=== PATIENT | male | born 1950 | race Caucasian/White ===

== ENCOUNTER 2018-02-19 13:43 | Emergency (ER) | END 2018-02-19 16:50 | disposition home or self-care (01) ==

== ENCOUNTER 2018-09-21 20:52 | Observation (INO) | payer MEDICARE, OTHER ==
[~2018-09-21] VITALS: Ht 175.3 cm; Wt 79.5 kg
[~2018-09-21 20:52] MED LIST: ZOLP5TAB PO
[2018-09-21] MEDS ORDERED: KETOROLAC 15 MG INJ IV STA (20:56)
[2018-09-21] MEDS ORDERED: ONDANSETRON 4 MG INJ IV STA (20:56)
[2018-09-21] MEDS ORDERED: SOD CHLORIDE 0.9% 1,000 ML IV STA (20:56)
--- NOTE | 2018-09-21 21:18 | ERD ---
ER Documentation Chief Complaint Chief Complaint RAFAEL RA39,possible sz per EMS,post-ictal,L cheeck abrasion, hx on methadone HPI This is a 68-year-old male brought in by EMS from [facility] [facility] for loss of consciousness and questionable seizure. 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 He states he has a "seizure" history but denies actual antiepileptic medication use. Patient had a witnessed collapse today and struck mostly the left side of his face, during this episode he had difficulty breathing and was foaming at the mouth, but his friend who is at the bedside states he had no tonic-clonic seizure activity. Patient denies any tongue injury, and there was no loss of bowel or bladder c ontrol. EMS state upon their arrival he was awake but a bit confused and they transported him here. Patient has had no recent chest pain, no shortness of breath, no complaints of vomiting or diarrhea. ROS All systems reviewed and are negative except as per history of present illness. 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 History of Surgery: No Anesthesia Reaction: No Hx Neurological Disorder: No Hx Respiratory Disorders: No Hx Cardiac Disorders: No Hx Miscellaneous Medical Probl: Yes (hepc , heroine use ) Hx Alcohol Use: Yes Hx Substance Use: Yes (h/o heroine use ) Hx Tobacco Use: Yes FmHx Family History: No diabetes Physical Exam Vitals Vital Signs Date Temp Pulse Resp B/P (MAP) Pulse Ox O2 O2 Flow FiO2 Time Delivery Rate 09/21/18 98.4 110 18 158/91 100 20:55 (113) Physical Exam GENERAL: Well-developed, well-nourished, appears initially confused, dehydrated, afebrile HEENT: Dry mucous membranes, pink conjunctiva, no cervical spine tenderness or step-off deformities, soft tissue contusion and abrasion to the left face and left orbit, extraocular movements intact without pain NEURO: Alert and oriented 3, pupils equal round reactive to light, patient initially confused but able to answer questions follow commands, no focal deficits CARDIAC: Tachycardic and regular, no murmurs rubs or gallops LUNGS: Clear bilaterally no wheezing crackles or stridor ABDOMEN: Soft nontender, no guarding, no rigidity, no rebound, no psoas sign no obturator sign. SKIN: Warm and dry to touch, no abrasions, contusions, or hematomas, no lacerations, no ecchymosis, no target lesions, and without ulcers EXTREMITIES: No clubbing cyanosis or edema, calves are bilaterally symmetrical, no Homans sign, no popliteal cord sign. Distal pulses equal and bilateral PSYCH: Normal affect without agitation or irritability Results 24 hrs Laboratory Tests Test 09/21/18 21:21 09/21/18 21:22 White Blood Count 2.6 10^3/ul Red Blood Count 3.96 10^6/ul Hemoglobin 13.4 g/dl Hematocrit 40.0 % Mean Corpuscular Volume 101.0 fl Mean Corpuscular Hemoglobin 33.8 pg Mean Corpuscular Hemoglobin Concent 33.5 g/dl Red Cell Distribution Width 14.3 % Platelet Count 37 10^3/UL Mean Platelet Volume 11.4 fl Immature Granulocytes % 0.400 % Neutrophils % % Lymphocytes % % Monocytes % % Eosinophils % % Basophils % % Nucleated Red Blood Cells % 0.0 /100WBC Immature Granulocytes # 0.010 10^3/ul Neutrophils # 10^3/ul Lymphocytes # 10^3/ul Monocytes # 10^3/ul Eosinophils # 10^3/ul Basophils # 10^3/ul Nucleated Red Blood Cells # 10^3/ul Blood Gas Specimen Source Blood arterial Arterial Blood Date Drawn 09/21/2018 9:30:40 PM Arterial Blood pH (Temp corrected) 7.516 Arterial Blood pCO2 (Temp correct) 26.9 mmhg Arterial Blood pO2 (Temp corrected) 87.9 mmHG Arterial Blood HCO3 21.3 mmol/L Arterial Blood Base Excess -0.2 mmol/L Arterial Blood Oxygen Saturation 97.1 mmHG Wade Test ACCEPTAB Arterial Blood Gas Puncture Site Right Radial Arterial Blood Carboxyhemoglobin 3.1 % Arterial Blood Methemoglobin 0.2 % Blood Gas A-a O2 Differential 29.6 mmHg Oxyhemoglobin Percent 93.9 % Blood Gas Temperature 37.0 C Blood Gas Modality ROOM AIR FiO2 21.0 % Blood Gas Notified Whom MG Blood Gas Notified Time 09/21/2018 9:39:15 PM Current Medications Medications Dose Sig/Cody Start Time Status Last (Trade) Ordered Route PRN Stop Time Admin Dose Reason Admin Sodium 1,000 ml @ Q1H STAT 09/21/18 09/21/18 Chloride 1,000 mls/hr IV 20:56 21:35 09/21/18 21:55 Ondansetron 4 mg ONCE STAT 09/21/18 DC 09/21/18 HCl (Zofran IV 20:56 21:35 Inj) 09/21/18 20:57 Ketorolac 15 mg ONCE STAT 09/21/18 DC 09/21/18 Tromethamine IV 20:56 21:35 (Toradol) 09/21/18 20:57 Procedures/MDM IV line was established patient was placed on director of cardiac cath lab rhythm strip revealed a sinus tachycardia at 110 bpm with upright P and T waves. Patient was afebrile EKG performed, read by me revealed a sinus tachycardia at 103 bpm, normal axis, narrow QRS complex, no concerning ST elevations or depressions noted CT scan of the brain was negative for acute bleed mass or shift. Chest X-ray 1V Interpreted by me: Soft Tissue: No acute abnormalities Bones: No acute abnormalities Mediastinum/Cardiac Silhouette/Lungs: No acute abnormalities I administered 1 L normal saline IV, Zofran 4 mg IV, Toradol [address] scan of the maxillofacial bones have been performed results are pending I will follow-up. ABG performed revealed a pH of 7.52, PCO2 27, PaO2 90 revealing mild respiratory alkalosis CBC was unremarkable, liver function tests normal, troponin negative, electrolytes normal I do not suspect seizure or primary cardiac etiology, patient most likely suffered acute opioid overdose versus benzodiazepine withdrawal as he does have a history of drug abuse and I suspect he continues to use drugs on a daily basis. I recommended admission to telemetry for continued medical management observation, and consultations although I deferred these to admitting team. 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
[2018-09-21] MEDS ORDERED: METH10TA2 PO (22:35)
[2018-09-22] VITALS (10 sets, daily range): BP systolic 108–148; BP diastolic 66–79; PULSE 59–89; RESP 16–18; Ht 175.3 cm; Wt 79.5 kg
[2018-09-22] MEDS ORDERED: ONDANSETRON 4 MG INJ IV PRN (02:00)
[2018-09-22] MEDS ORDERED: ACETAMINOPHEN 325 MG TAB PO PRN (02:00)
[2018-09-22] MEDS ORDERED: NACL 0.9% 3 ML SYG IV SCH (02:00)
--- NOTE | 2018-09-22 02:14 | HP ---
Date/Time of Note Date/Time of Note DATE: 09/22/18 TIME: 02:13 Assessment/Plan VTE Prophylaxis SCD applied (from Nsg): Yes Pharmacological prophylaxis: NA/contraindicated Pharm contraindication: thrombocytopenia Lines/Catheters IV Catheter Type (from Nrsg): Saline Lock Assessment/Plan Hospital Course This is a 68-year-old male being admitted to the telemetry floor for observation for: #1 syncope: Neurocardiogenic versus cardiogenic versus seizure disorder versus drug related. CT of the head does not show any acute intracranial abnormality. EKG is nonischemic. Initial troponin was negative. Will check an echocardiogram with bubble study. Will order an MRI of the brain. Carotid Do pplers. Fall precautions, seizure precautions. Check D-dimer as well as PE is also on differential with his abnormal ABG.. Orthostatic vitals. Will monitor the patient on telemetry. Of note urine drug screen is negative. PT OT evaluation. PRN Ativan for seizures. Neuro consult #2 Hyperbilirubinemia: Patient denies any right upper quadrant pain. Will check liver ultrasound. Patient may have a history of possible underlying liver disorder. hepaptitis panel #3 thrombocytopenia: Etiology unknown, appear relatively consistent with previous labs. Appears relatively consistent from previous labs. Possibly secondary to underlying liver disorder, will obtain liver ultrasound. hepatitis panel. #4 leukopenia: Patient is currently afebrile, this was likely secondary to underlying liver disorder versus other. Will check a right upper quadrant ultrasound. Likely will need further workup as an outpatient. #5 history of illicit drug use: Patient has a history of IV drug use in the past. Currently on methadone 40 mg p.o. daily. He is complaining of pain at the current time. Given that I did give him a one-time dose of morphine. Will consider restarting methadone once patient's symptoms are improved. #6 DVT GI prophylaxis: SCDs, no GI prophylaxis indicated Further treatment strategy will be implemented as per the clinical course. Result Diagram: 09/21/18212009/21/182120 Results 24hrs Laboratory Tests Test 09/21/18 21:21 09/21/18 21:22 09/22/18 00:40 White Blood Count 2.6 L Red Blood Count 3.96 L Hemoglobin 13.4 L Hematocrit 40.0 L Mean Corpuscular Volume 101.0 Mean Corpuscular 33.8 H Hemoglobin Mean Corpuscular 33.5 Hemoglobin Concent Red Cell Distribution 14.3 Width Platelet Count 37 #L Mean Platelet Volume 11.4 H Immature Granulocytes % 0.400 Neutrophils % Segmented Neutrophils 50 % (Manual) Lymphocytes % Lymphocytes % (Manual) 32 Reactive Lymphocytes 7 H % (Manual) Monocytes % Monocytes % (Manual) 6 Eosinophils % Eosinophils % (Manual) 2 Basophils % Metamyelocytes % (manual) 2 H Myelocytes % (Manual) 1 H Nucleated Red Blood Cells 0.0 % Immature Granulocytes # 0.010 Neutrophils # Lymphocytes (Manual) 0.8 Lymphocytes # Reactive Lymphocytes # 0.1 H Monocytes # Monocytes # (Manual) 0.1 L Eosinophils # Basophils # Metamyelocytes # 0.0 Myelocytes # 0.0 Nucleated Red Blood Cells # Platelet Estimate SIG DECREASED Sodium Level 136 Potassium Level 3.3 L Chloride Level 101 Carbon Dioxide Level 22 Anion Gap 13 Blood Urea Nitrogen 9 Creatinine 0.64 Est Glomerular Filtrat > 60 Rate mL/min Glucose Level 124 Calcium Level 9.0 Total Bilirubin 1.8 H Direct Bilirubin 0.00 Indirect Bilirubin 1.8 H Aspartate Amino 56 H Transf (AST/SGOT) Alanine 39 Aminotransferase (ALT/SGPT ) Alkaline Phosphatase 133 H Troponin I < 0.012 Total Protein 8.2 H Albumin 3.7 Globulin 4.50 H Albumin/Globulin Ratio 0.82 Lipase 219 Ethyl Alcohol Level < 10.0 H Blood Gas Specimen Source Blood arterial Arterial Blood Date Drawn 09/21/2018 9:30:40 PM Arterial Blood pH 7.516 H (Temp corrected) Arterial Blood pCO2 26.9 L (Temp correct) Arterial Blood pO2 87.9 (Temp corrected) Arterial Blood HCO3 21.3 L Arterial Blood Base Excess -0.2 Arterial Blood 97.1 Oxygen Saturation Wade Test ACCEPTAB Arterial Blood Gas Right Radial Puncture Site Arterial 3.1 H Blood Carboxyhemoglobin Arterial Blood 0.2 Methemoglobin Blood Gas A-a O2 29.6 H Differential Oxyhemoglobin Percent 93.9 Blood Gas Temperature 37.0 Blood Gas Modality ROOM AIR FiO2 21.0 Blood Gas Notified Whom MG Blood Gas Notified Time 09/21/2018 9:39:15 PM Urine Opiates Screen Negative Urine Barbiturates Negative Urine Amphetamines Screen Negative Urine Benzodiazepines Negative Screen Urine Cocaine Screen Negative Urine Cannabinoids Negative HPI/ROS Admit Date/Time Admit Date/Time Hx of Present Illness Chief complaint: Syncopal episode versus seizure The following history was obtained from the ED physician as well as from the patient. Patient however is a very poor historian. This is a 68-year-old male who was brought in by EMS from home versus boarding care facility after patient was witnessed to have loss of consciousness and possible seizure. Patient had a lives with a roommate. Apparently patient was noticed to be standing at the kitchen floor and fell forward and hit his face. He was apparently noticed to have a seizure however there was no shaking present. Patient himself reports that he has a seizure in the past years ago however he is not currently on any antiepileptic medications. Apparently when the patient fell he was noted to have foaming at the mouth but his friend who was with him at the bedside in the ED denied any tonic-clonic seizure activity. There was no tongue biting or loss of bowel or bladder control. When EMS arrived to pick of the patient he did report that he was awake but he did appear confused. Patient himself does not recall what happened except for when he woke up and saw the paramedics. Patient himself only states that he takes methadone daily and a pill for sleeping. He states he goes to [facility] to get his methadone. He states he takes methadone 40 mg p.o. daily Allergies: NKDA Medications: See TYE ALVARADO Const: As per HPI Eyes : No pain discharge or redness or change in visual acuity ENT: No pain, sore throat, congestion, congestion, dysphagia or discharge Respiratory: No shortness of breath, cough, sputum, wheezing, or pleuritic pain Cardiovascular: No chest pain, palpitation, PND, or edema GI : no change in appetite, abdominal pain, nausea, vomiting, diarrhea, constipation, or change in the color his stool Genitourinary: No dysuria, hematuria, flank pain , discharge or CVA tenderness Musculoskeletal: No joint pain, back pain, neck pain, restricted range of motion in neck or joints Skin: As per HPI Neuro: As per HPI Endocrine: No polyuria, polydipsia, temperature intolerance Psych: No hallucination, depression, anxiety or suicidal ideation PMH/Family/Social Past Medical History Remote history of a seizure as a child Medications Current Medications IV Flush (NS 3 ml) 3 ml PER PROTOCOL IV ; Start 09/22/18 at 02:00 Ondansetron HCl (Zofran Inj) 4 mg Q6H PRN IV NAUSEA/VOMITING; Start 09/22/18 at 02:00 Acetaminophen (Tylenol Tab) 650 mg Q6H PRN PO .PAIN 1-3 OR TEMP; Start 09/22/18 at 02:00 Lorazepam (Ativan) 1 mg Q4H PRN IV SEIZURES; Start 09/22/18 at 02:30 Coded Allergies: No Known Allergy (Unverified , 09/21/18) Past Surgical History Past Surgical Hx: no surgical history Family History Significant Family History: no pertinent family hx Social History History of IV drug use in the past currently on methadone Alcohol Use: none Smoking Status: Unknown if ever smoked Drug Use: none Exam/Review of Systems Vital Signs Vitals Vital Signs Date Temp Pulse Resp B/P (MAP) Pulse Ox O2 O2 Flow FiO2 Time Delivery Rate 09/21/18 98.4 70 18 158/91 100 Room Air 21:00 (113) Exam Exam General: Patient is currently lying in bed he is easily arousable he does still report that he does not recall exactly what happened. HEENT: Atraumatic, normocephalic. The pupils are equal, round and reactive. Extraocular motor are intact, left-sided facial contusion from fall Neck: Supple with full range of motion. No rigidity or meningismus Chest: Nontender Lungs: Clear to auscultation bilaterally no crackles rales or wheezing Heart: Normal S1-S2, Regular rhythm and rate. No murmur, S3, or S4 Abdomen: Soft , nontender, nondistended , bowel sounds are present. No guarding no rebound tenderness , No masses or organomegaly. No costovertebral temporal angle mass Extremities: Normal to inspection, no edema no cyanosis Skin: Left-sided facial contusion from fall no overt bleeding at the current time. Neurologic: Alert and oriented x3, speech is normal, cranial nerves II through XII intact, no focal neurological deficits, strength 5-bilateral upper and lower extremities Additional Comments PROCEDURE: CT Maxillofacial without contrast CLINICAL INDICATION: Acute trauma. TECHNIQUE: A CT of the facial bones was performed on a multi-slice CT scanner utilizing high-resolution axial images. Sagittal, coronal, and multiplanar ref ormatted images were made. Additionally, 3-D reformatted images were made. One or more the following dose reduction techniques were utilized: Automated exposure control, adjustment of the mA/ or kV according to patient's size, or use of iterative reconstruction technique. DICOM images are available for review. The CTDIvol is 29.42 mGy and the DLP is 627.85 mGycm. COMPARISON: None. FINDINGS: Osseous structures: Mandible, zygomatic arches, pterygoid plates and anterior maxillary spine are intact. The nasal septum, left and right maxilla and bony orbits are intact. Old bilateral nasal bone fractures. Soft tissues: There is bleeding in the soft tissues of the anterior lateral lef t cheek. No localized hematoma. Bleeding extends into the inferior left eyelid. The left and right globes and retro-orbital soft tissues are intact. IMPRESSION: 1. No acute facial bone fracture. 2. Bleeding in the soft tissues of the left anterior lateral cheek. RPTAT: [facility] Physician Prince Date Time Electronically viewed and signed by Physician Prince on 09/21/2018 22:37 RS/ CC: PATTIE DE LA GARZA MD [id number] PROCEDURE: CT Brain without contrast. CLINICAL INDICATION: 68-year-old male. Acute trauma. TECHNIQUE: A CT of the brain was performed on a multi-slice CT scanner utilizing axial imaging from the skull base through the vertex without IV contrast. Multiplanar reformatted images were made. Images were reviewed on a PACS workstation. One or more the following dose reduction techniques were utilized: Automated exposure control, adjustment of mA/ or kV according to patient's size, or use of iterative reconstruction technique. DICOM images are available for review. The CTDIvol is 38.91 mGy and the DLP is 713.51 mGycm. COMPARISON: None FINDINGS: Cerebral and cerebellar volume loss. No mass effect or midline shift. No acute intra-axial or extra-axial hemorrhage. No subdural collection. Lobo - white mat ter differentiation is maintained. Visualized paranasal sinuses are clear. Mastoid air cells are clear. IMPRESSION: No acute intracranial hemorrhage. RPTAT: [facility] Grace Mendez Physician Date Time Electronically viewed and signed by Grace Mendez Physician on 09/21/2018 22:38 RS/ CC: PATTIE DE LA GARZA MD [id number] PROCEDURE: DX Chest 1 View CLINICAL INDICATION: Acute trauma. TECHNIQUE: AP Portable chest. COMPARISON: None FINDINGS: Normal cardiac and mediastinal configuration. Aortic calcified plaque present. No CHF or hilar enlargement. Lungs are clear. IMPRESSION: No acute disease. RPTAT: [facility] Grace Mendez, Physician Date Time Electronically viewed and signed by Grace Mendez, Physician on 09/21/2018 22:38 RS/ CC: PATTIE DE LA GARZA MD [id number] EKG sinus tachycardia at 103 bpm, normal axis, narrow QRS complex, no concerning ST elevations or depressions noted VLAD CROSS Sep 22, 2018 02:14
[2018-09-22] MEDS ORDERED: LORAZEPAM 2 MG INJ IV PRN (02:30)
[2018-09-22] MEDS ORDERED: POTASSIUM CHLORIDE (SR) 20 MEQ TAB PO ONE (04:00)
[2018-09-22] MEDS ORDERED: morphine 2 MG INJ IV ONE (04:00)
--- NOTE | 2018-09-22 10:05 | CONS ---
Assessment/Plan Assessment/Plan Hospital Course 68 M c/ Hx of polysubstance abuse w/ Hx of provoked seizures in that context...who presents for evaluation following LOC. He denies recent ETOH or illicit drug use in the past year. UDS negative.. The clinical Hx is suspicious for unprovoked seizure.. Head CT is unrevealing. P: Await MRI brain w/ and w/o contrast Add EEG to evaluate for epileptiform activity Ativan iv prn prolonged seizure Consultation Date/Type/Reason Admit Date/Time Type of Consult Neurology Reason for Consultation LOC Requesting Provider: VLAD CROSS Date/Time of Note DATE: 09/22/18 TIME: 10:05 Hx of Present Illness This is a 68-year-old male who was brought in by EMS from home versus boarding care facility after patient was witnessed to have loss of consciousness and possible seizure. Patient had a lives with a roommate. Apparently patient was noticed to be standing at the kitchen floor and fell forward and hit his face. He was apparently noticed to have a seizure however there was no shaking present. Patient himself reports that he has a seizure in the past years ago however he is not currently on any antiepileptic medications. Apparently when the patient fell he was noted to have foaming at the mouth but his friend who was with him at the bedside in the ED denied any tonic-clonic seizure activity. There was no tongue biting or loss of bowel or bladder control. When EMS arrived to pick of the patient he did report that he was awake but he did appear confused. Patient himself does not recall what happened except for when he woke up and saw the paramedics. Patient himself only states that he takes methadone daily and a pill for sleeping. He states he goes to community clinic at the [facility] to get his methadone. He states he takes methadone 40 mg p.o. daily Allergies: NKDA Medications: See OCT 09 PT ROS ow neg Exam/Review of Systems Exam Vitals Vital Signs Date Temp Pulse Resp B/P (MAP) Pulse Ox O2 O2 Flow FiO2 Time Delivery Rate 09/22/18 60 08:12 09/22/18 98.0 16 108/69 98 Room Air 07:20 (82) Intake and Output 09/21/18 09/21/18 09/22/18 1515:00 23:00 07:00 IntakeIntake Total 300 ml BalanceBalance 300 ml Exam PE: Gen Appearance: No Apparent Distress HEENT: R eye hematoma; tongue biting.. Cardiovascular: Regular rate Lungs: Clear bilaterally Abdomen: Soft Extremities: Dry NE: The patient was alert and oriented. Language was normal. Fund of knowledge was normal. Pupils were equal and reactive to light. There was no afferent pupillary defect. Visual rothman were normal. Funduscopic examination was limited. Extra-ocular movements were full. Ptosis was absent. There was no nystagmus. Facial sensation was symmetric. Face was symmetric with normal strength. Hearing was intact. Palate movements were normal. Neck strength was normal. There was normal tongue bulk and speed of movement. Tone was normal. Muscle bulk was normal. I did not see fasciculations. Arms and legs were symmetric. Vibration sensation was symmetric. Temperature and pinprick sensation was symmetric. Rapid alternating movements were normal. There was no dysmetria. There was no intention tremor. Gait was deferred due to bedrest. Arm and leg reflexes were symmetric. Potter's sign was absent. Plantar responses were flexor. Results Result Diagram: 09/22/1860409/22/18604 Results 24hrs Laboratory Tests Test 09/21/18 21:21 09/21/18 21:22 09/22/18 00:40 09/22/18 06:05 White Blood 2.6 L 1.8 #L Count Red Blood Count 3.96 L 3.15 #L Hemoglobin 13.4 L 10.8 L Hematocrit 40.0 L 31.4 #L Mean 101.0 99.7 Corpuscular Volume Mean 33.8 H 34.3 H Corpuscular Hemoglobin Mean 33.5 34.4 Corpuscular Hemoglobin Conc ent Red Cell 14.3 14.0 Distribution Width Platelet Count 37 #L 28 #*L Mean Platelet 11.4 H 12.3 H Volume Immature 0.400 0.000 L Granulocytes % Neutrophils % Segmented 50 62 Neutrophils % (Manual) Lymphocytes % Lymphocytes % 32 27 (Manual) Reactive 7 H Lymphocytes % (Manual) Monocytes % Monocytes % 6 7 (Manual) Eosinophils % Eosinophils % 2 4 (Manual) Basophils % Metamyelocytes 2 H % (manual) Myelocytes % 1 H (Manual) Nucleated Red 0.0 0.0 Blood Cells % Immature 0.010 0.000 Granulocytes # Neutrophils # Lymphocytes 0.8 0.4 L (Manual) Lymphocytes # Reactive 0.1 H Lymphocytes # Monocytes # Monocytes # 0.1 L 0.1 L (Manual) Eosinophils # Basophils # Metamyelocytes 0.0 # Myelocytes # 0.0 Nucleated Red Blood Cells # Platelet SIG DECREASED SIG DECREASED Estimate Sodium Level 136 135 Potassium Level 3.3 L 4.3 Chloride Level 101 106 Carbon Dioxide 22 27 Level Anion Gap 13 2 #L Blood Urea 9 8 Nitrogen Creatinine 0.64 0.62 Est Glomerular > 60 > 60 Filtrat Rate mL/min Glucose Level 124 87 Calcium Level 9.0 8.5 Total Bilirubin 1.8 H 1.9 H Direct 0.00 0.00 Bilirubin Indirect 1.8 H 1.9 H Bilirubin Aspartate Amino 56 H 45 Transf (AST/SGO T) Alanine 39 35 Aminotransferas e (ALT/SGPT) Alkaline 133 H 81 Phosphatase Troponin I < 0.012 0.014 Total Protein 8.2 H 6.3 # Albumin 3.7 2.6 #L Globulin 4.50 H 3.70 H Albumin/Globuli 0.82 0.70 n Ratio Lipase 219 Ethyl Alcohol < 10.0 H Level Blood Gas Blood arterial Specimen Source Arterial Blood 09/21/2018 9:30: Date Drawn 40 PM Arterial Blood 7.516 H pH (Temp corrected ) Arterial Blood 26.9 L pCO2 (Temp correct) Arterial Blood 87.9 pO2 (Temp corrected ) Arterial Blood 21.3 L HCO3 Arterial Blood -0.2 Base Excess Arterial Blood 97.1 Oxygen Saturati on Wade Test ACCEPTAB Arterial Blood Right Radial Gas Puncture Site Arterial 3.1 H Blood Carboxyhe moglobin Arterial Blood 0.2 Methemoglobin Blood Gas A-a 29.6 H O2 Differential Oxyhemoglobin 93.9 Percent Blood Gas 37.0 Temperature Blood Gas ROOM AIR Modality FiO2 21.0 Blood Gas MG Notified Whom Blood Gas 09/21/2018 9:39: Notified Time 15 PM Urine Opiates Negative Screen Urine Negative Barbiturates Urine Negative Amphetamines Screen Urine Negative Benzodiazepines Screen Urine Cocaine Negative Screen Urine Negative Cannabinoids Band 1 Neutrophils % (Manual) Neutrophils # 1.1 L (Manual) Band 0.0 Neutrophils # Giant Platelets 3 H Hemoglobin A1c 4.4 Magnesium Level 1.7 Creatine Kinase 250 H Creatine Kinase 1.2 Index Creatinine 2.99 H Kinase MB (Mass) Thyroid 1.250 Stimulating Hormone (TSH) Test 09/22/18 08:11 D-Dimer 1905.43 H D-Dimer Comment Medications Medication Current Medications IV Flush (NS 3 ml) 3 ml PER PROTOCOL IV ; Start 09/22/18 at 02:00 Ondansetron HCl (Zofran Inj) 4 mg Q6H PRN IV NAUSEA/VOMITING Last administered on 09/22/18at 09:57; Admin Dose 4 MG; Start 09/22/18 at 02:00 Acetaminophen (Tylenol Tab) 650 mg Q6H PRN PO .PAIN 1-3 OR TEMP; Start 09/22/18 at 02:00 Lorazepam (Ativan) 1 mg Q4H PRN IV SEIZURES; Start 09/22/18 at 02:30 Past Medical History reviewed Home Meds Reported Medications Methadone Hcl* (Methadone*) 10 Mg Tab, 40 MG PO DAILY, TAB PER PT GETS RX AT [facility] 09/21/18 Discontinued Scripts Zolpidem Tartrate* (Ambien*) 5 Mg Tablet, 5 MG PO HS PRN for INSOMNIA, #10 TAB Prov:VIV HELTON MD 02/19/18 Medications Current Medications IV Flush (NS 3 ml) 3 ml PER PROTOCOL IV ; Start 09/22/18 at 02:00 Ondansetron HCl (Zofran Inj) 4 mg Q6H PRN IV NAUSEA/VOMITING Last administered on 09/22/18at 09:57; Admin Dose 4 MG; Start 09/22/18 at 02:00 Acetaminophen (Tylenol Tab) 650 mg Q6H PRN PO .PAIN 1-3 OR TEMP; Start 09/22/18 at 02:00 Lorazepam (Ativan) 1 mg Q4H PRN IV SEIZURES; Start 09/22/18 at 02:30 Allergies: Coded Allergies: No Known Allergy (Unverified , 09/21/18) Past Surgical History reviewed Past Surgical Hx: no surgical history Social History reviewed Alcohol Use: none Smoking Status: Unknown if ever smoked Drug Use: none ANDERSON CRUZ NP Sep 22, 2018 10:05 ERNESTO HAMILTON Sep 22, 2018 11:50
[2018-09-22] MEDS: NICOTINE (21 MG/24 HR) PATCH TRANSDERM SCH (16:22)
--- NOTE | 2018-09-22 16:34 | PN ---
Date/Time of Note Date/Time of Note DATE: 09/22/18 TIME: 16:30 Assessment/Plan VTE Prophylaxis Risk score (from Ns)>0 risk: 4 SCD applied (from [facility]): Yes Pharmacological prophylaxis: NA/contraindicated Pharm contraindication: bleeding, thrombocytopenia Lines/Catheters IV Catheter Type (from [facility]): Saline Lock Assessment/Plan Assessment/Plan This is a 68-year-old male being admitted to the telemetry floor for observation for: #1 syncope: - Neurocardiogenic versus cardiogenic versus seizure disorder. - CT of the head does not show any acute intracranial abnormality. - EKG is nonischemic, trop negative x3, no events on tele. - Neurology is concerned about occult seizure. Will get MRI and EEG prior to discharge. 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 Patient is now sober. #3 thrombocytopenia: - Likely from cirrhosis; stable from prior labs. Patient is not actively bleeding. #5 history of illicit drug use: - Patient has a history of IV drug use in the past. Currently on methadone 40 mg p.o. daily. #6 DVT GI prophylaxis: SCDs, no GI prophylaxis indicated Further treatment strategy will be implemented as per the clinical course. Result Diagram: 09/22/18 0605 09/22/18 0605 Subjective 24 Hr Interval Summary Free Text/Dictation No acute overnight events. This morning patient feeling well, no complaints. Up and ambulating. Exam/Review of Systems Exam Vitals Vital Signs Date Temp Pulse Resp B/P (MAP) Pulse Ox O2 O2 Flow FiO2 Time Delivery Rate 09/22/18 63 16:08 09/22/18 97.6 18 113/66 98 Room Air 11:08 (82) Intake and Output 09/21/18 09/21/18 09/22/18 1515:00 23:00 07:00 IntakeIntake Total 300 ml BalanceBalance 300 ml Exam General: Well developed man up and ambulatory in room. HEENT: Atraumatic, normocephalic. The pupils are equal, round and reactive. Extraocular motor are intact, left-sided facial contusion from fall Neck: Supple with full range of motion. No rigidity or meningismus Chest: Nontender Lungs: Clear to auscultation bilaterally no crackles rales or wheezing Heart: Normal S1-S2, Regular rhythm and rate. No murmur, S3, or S4 Abdomen: Soft , nontender, nondistended , bowel sounds are present. No guarding no rebound tenderness , Extremities: Normal to inspection, no edema no cyanosis Skin: Left-sided facial contusion from fall no overt bleeding at the current time. Results Results 24hrs Laboratory Tests Test 09/21/18 21:21 09/21/18 21:22 09/22/18 00:40 09/22/18 06:02 White Blood 2.6 L Count Red Blood Count 3.96 L Hemoglobin 13.4 L Hematocrit 40.0 L Mean Corpuscular 101.0 Volume Mean Corpuscular 33.8 H Hemoglobin Mean Corpuscular 33.5 Hemoglobin Cristina nt Red Cell 14.3 Distribution Width Platelet Count 37 #L Mean Platelet 11.4 H Volume Immature 0.400 Granulocytes % Neutrophils % Segmented 50 Neutrophils % (Manual) Lymphocytes % Lymphocytes % 32 (Manual) Reactive 7 H Lymphocytes % (Manual) Monocytes % Monocytes % 6 (Manual) Eosinophils % Eosinophils % 2 (Manual) Basophils % Metamyelocytes % 2 H (manual) Myelocytes % 1 H (Manual) Nucleated Red 0.0 Blood Cells % Immature 0.010 Granulocytes # Neutrophils # Lymphocytes 0.8 (Manual) Lymphocytes # Reactive 0.1 H Lymphocytes # Monocytes # Monocytes # 0.1 L (Manual) Eosinophils # Basophils # Metamyelocytes # 0.0 Myelocytes # 0.0 Nucleated Red Blood Cells # Platelet SIG DECREASED Estimate Sodium Level 136 Potassium Level 3.3 L Chloride Level 101 Carbon Dioxide 22 Level Anion Gap 13 Blood Urea 9 Nitrogen Creatinine 0.64 Est Glomerular > 60 Filtrat Rate mL/min Glucose Level 124 Calcium Level 9.0 Total Bilirubin 1.8 H Direct Bilirubin 0.00 Indirect 1.8 H Bilirubin Aspartate Amino 56 H Transf (AST/SGOT ) Alanine 39 Aminotransferase (ALT/SGPT) Alkaline 133 H Phosphatase Troponin I < 0.012 Total Protein 8.2 H Albumin 3.7 Globulin 4.50 H Albumin/Globulin 0.82 Ratio Lipase 219 Ethyl Alcohol < 10.0 H Level Blood Gas Blood arterial Specimen Source Arterial Blood 09/21/2018 9:30: Date Drawn 40 PM Arterial Blood 7.516 H pH (Temp corrected) Arterial Blood 26.9 L pCO2 (Temp correct) Arterial Blood 87.9 pO2 (Temp corrected) Arterial Blood 21.3 L HCO3 Arterial Blood -0.2 Base Excess Arterial Blood 97.1 Oxygen Saturatio n Wade Test ACCEPTAB Arterial Blood Right Radial Gas Puncture Site Arterial 3.1 H Blood Carboxyhem oglobin Arterial Blood 0.2 Methemoglobin Blood Gas A-a O2 29.6 H Differential Oxyhemoglobin 93.9 Percent Blood Gas 37.0 Temperature Blood Gas ROOM AIR Modality FiO2 21.0 Blood Gas MG Notified Whom Blood Gas 09/21/2018 9:39: Notified Time 15 PM Urine Opiates Negative Screen Urine Negative Barbiturates Urine Negative Amphetamines Screen Urine Negative Benzodiazepines Screen Urine Cocaine Negative Screen Urine Negative Cannabinoids Hepatitis B NEGATIVE Surface Antigen Hepatitis B POSITIVE H Surface Antibody Hepatitis C REACTIVE H Antibody Test 09/22/18 06:05 09/22/18 08:00 09/22/18 08:11 09/22/18 09:44 White Blood 1.8 #L Count Red Blood Count 3.15 #L Hemoglobin 10.8 L Hematocrit 31.4 #L Mean Corpuscular 99.7 Volume Mean Corpuscular 34.3 H Hemoglobin Mean Corpuscular 34.4 Hemoglobin Cristina nt Red Cell 14.0 Distribution Width Platelet Count 28 #*L Mean Platelet 12.3 H Volume Immature 0.000 L Granulocytes % Neutrophils % Segmented 62 Neutrophils % (Manual) Band Neutrophils 1 % (Manual) Lymphocytes % Lymphocytes % 27 (Manual) Monocytes % Monocytes % 7 (Manual) Eosinophils % Eosinophils % 4 (Manual) Basophils % Nucleated Red 0.0 Blood Cells % Immature 0.000 Granulocytes # Neutrophils # Neutrophils # 1.1 L (Manual) Band Neutrophils 0.0 # Lymphocytes 0.4 L (Manual) Lymphocytes # Monocytes # Monocytes # 0.1 L (Manual) Eosinophils # Basophils # Nucleated Red Blood Cells # Platelet SIG DECREASED Estimate Giant Platelets 3 H Sodium Level 135 Potassium Level 4.3 Chloride Level 106 Carbon Dioxide 27 Level Anion Gap 2 #L Blood Urea 8 Nitrogen Creatinine 0.62 Est Glomerular > 60 Filtrat Rate mL/min Glucose Level 87 Hemoglobin A1c 4.4 Calcium Level 8.5 Magnesium Level 1.7 Total Bilirubin 1.9 H Direct Bilirubin 0.00 Indirect 1.9 H Bilirubin Aspartate Amino 45 Transf (AST/SGOT ) Alanine 35 Aminotransferase (ALT/SGPT) Alkaline 81 Phosphatase Creatine Kinase 250 H 272 H Creatine Kinase 1.2 1.0 Index Creatinine 2.99 H 2.74 H Kinase MB (Mass) Troponin I 0.014 < 0.012 Total Protein 6.3 # Albumin 2.6 #L Globulin 3.70 H Albumin/Globulin 0.70 Ratio Thyroid 1.250 Stimulating Hormone (TSH) Rapid Plasma NONREACTIVE Reagin Prothrombin Time 19.5 H Prothrombin Time 1.5 Ratio INR 1.64 International Normalized Ratio Activated 41.1 H Partial Thrombop last Time D-Dimer 1905.43 H D-Dimer Comment Medications Medication Current Medications IV Flush (NS 3 ml) 3 ml PER PROTOCOL IV ; Start 09/22/18 at 02:00 Ondansetron HCl (Zofran Inj) 4 mg Q6H PRN IV NAUSEA/VOMITING Last administered on 09/22/18at 09:57; Admin Dose 4 MG; Start 09/22/18 at 02:00 Acetaminophen (Tylenol Tab) 650 mg Q6H PRN PO .PAIN 1-3 OR TEMP; Start 09/22/18 at 02:00 Lorazepam (Ativan) 1 mg Q4H PRN IV SEIZURES; Start 09/22/18 at 02:30 Nicotine (Nicoderm 21 Mg/ 24hr) 1 patch DAILY TRANSDERM Last administered on 09/22/18at 16:22; Admin Dose 1 PATCH; Start 09/22/18 at 16:00 ANTONIA PATTON MD Sep 22, 2018 16:34
[2018-09-22] MEDS ORDERED: AL HYDROX/MG HYDROX/SIMETH 30 ML CUP PO PRN (20:30)
--- NOTE | 2018-09-22 21:05 | EEG ---
EEG NOTE Report Details DATE OF TEST: 09/22/18 HISTORY: The patient is a 68-year-old M who presents with altered mental status. This EEG is requested to evaluate for an epileptic disorder. SEDATION: None. CONDITIONS OF RECORDING: This EEG was recorded digitally on the [email or web address] machine, using the International 10-20 System of electrodes plus anterior temporals and Nz. STATES SAMPLED: Wakefulness and drowsiness. FINDINGS: During wakefulness, there is a 10 Hz posterior dominant rhythm, which attenuates normally with eye opening. There is a normal [id number] frequency-amplitude gradient. The remainder of the awake background is notable for admixed theta and delta activity. Photic stimulation does not elicit any definite driving responses or epileptiform discharges. Hyperventilation was not performed. The patient became drowsy but did not pass into sleep. No asymmetries, focal abnormalities or epileptiform discharges were seen. Incidentally, the single-channel radiation monitor did not reveal any obvious cardiac arrhythmia. IMPRESSION: Abnormal electroencephalogram due to: mild diffuse slowing. COMMENT: The slowing of the background indicates mild, diffuse cortical dysfunction of nonspecific etiology. ERNESTO HAMILTON Sep 22, 2018 21:05
[2018-09-23] VITALS: BP 109/64; PULSE 62; PULSE 65; RESP 18
[2018-09-23 04:00] VITALS: BP 112/72; PULSE 63; PULSE 64; RESP 18
[2018-09-23] MEDS ORDERED: SOD CHLORIDE 0.9% 100 ML ONE (06:16)
[2018-09-23] MEDS ORDERED: IOHEXOL 100 ML ONE (06:16)
[2018-09-23] MEDS ORDERED: IOHEXOL 350MG/ML 50 ML BTL ONE (06:17)
[2018-09-23 07:49] VITALS: BP 120/76; PULSE 67; RESP 16
[2018-09-23 08:12] VITALS: PULSE 63
[2018-09-23] MEDS: NICOTINE (21 MG/24 HR) PATCH TRANSDERM SCH (08:35)
--- NOTE | 2018-09-23 12:01 | PDOCDIS ---
Discharge Instructions DIAGNOSIS Discharge Diagnosis Non-cardiac or neurologic syncope. Likely vasovagal. CONDITION [id number] Patient Condition: [id number] Good HOME CARE INSTRUCTIONS: [id number] Diet Instructions: [id number] Regular ACTIVITY: [id number] Activity Restrictions: [id number] No Restrictions FOLLOW UP/APPOINTMENTS Follow-up Plan 1. Take all medications as prescribed. 2. See your primary care doctor as scheduled. ANTONIA PATTON MD Sep 23, 2018 12:01
[2018-09-23 12:13] VITALS: PULSE 66
--- NOTE | 2018-09-23 15:25 | DS ---
Date/Time of Note Date/Time of Note DATE: 09/23/18 TIME: 15:22 Discharge Summary Admission/Discharge Info Admit Date/Time Sep 22, 2018 at 02:23 Discharge Date/Time Sep 23, 2018 at 14:58 Discharge Diagnosis Non-cardiac or neurologic syncope. Likely vasovagal. Patient Condition: Good Consults Dr. Bhakta, neurology Procedures EEG Hx of Present Illness Chief complaint: Syncopal episode versus seizure The following history was obtained from the ED physician as well as from the patient. Patient however is a very poor historian. This is a 68-year-old male who was brought in by EMS from home versus boarding care facility after patient was witnessed to have loss of consciousness and possible seizure. Patient had a lives with a roommate. Apparently patient was noticed to be standing at the kitchen floor and fell forward and hit his face. He was apparently noticed to have a seizure however there was no shaking present. Patient himself reports that he has a seizure in the past years ago however he is not currently on any antiepileptic medications. Apparently when the patient fell he was noted to have foaming at the mouth but his friend who was with him at the bedside in the ED denied any tonic-clonic seizure activity. There was no tongue biting or loss of bowel or bladder control. When EMS arrived to pick of the patient he did report that he was awake but he did appear confused. Patient himself does not recall what happened except for when he woke up and saw the paramedics. Patient himself only states that he takes methadone daily and a pill for sleeping. He states he goes to community clinic at the [facility] to get his methadone. He states he takes methadone 40 mg p.o. daily Allergies: NKDA Medications: See [facility] Hospital Course The patient was found to have cirrhosis with thrombocytopenia. He did have facial ecchymoses from the fall, but no fractures and no active bleeding. Because of his seizure history, and the unusual nature of the fall (forward onto his face, instead of backwards), and a small tongue laceration (indicating a probable bite), we were concerned for a repeat seizure. He got an MRI brain which was negative for edema or infarct; and an EEG which did not show any spikes or seizure activity. Monitored on tele for 24 hours which was normal sinus, no events. Likely vasovagal syncope, he was discharged home. Home Meds Reported Medications Methadone Hcl* (Methadone*) 10 Mg Tab, 40 MG PO DAILY, TAB PER PT GETS RX AT [facility] 09/21/18 Discontinued Scripts Zolpidem Tartrate* (Ambien*) 5 Mg Tablet, 5 MG PO HS PRN for INSOMNIA, #10 TAB Prov:VIV HELTON MD 02/19/18 Follow-up Plan 1. Take all medications as prescribed. 2. See your primary care doctor as scheduled. Primary Care Provider Care Physician No Primary Time spent on discharge: > 30 minutes Pending Labs Laboratory Tests Test 09/22/18 16:29 09/23/18 05:48 Creatine Kinase 296 IU/L (23-200) Creatine Kinase Index 1.1 Creatinine Kinase MB 3.27 ng/ml (0.0-2.4) (Mass) Troponin I < 0.012 ng/ml (0.000-0.120) White Blood Count 1.6 10^3/ul (4.8-10.8) Red Blood Count 3.24 10^6/ul (4.70-6.10) Hemoglobin 11.1 g/dl (14.0-18.0) Hematocrit 33.1 % (42.0-52.0) Mean Corpuscular Volume 102.2 fl (82.0-101.0) Mean Corpuscular 34.3 pg (29.0-33.0) Hemoglobin Mean Corpuscular 33.5 g/dl (32.0-37.0) Hemoglobin Concent Red Cell Distribution 14.2 % (11.5-14.5) Width Platelet Count 29 10^3/UL (140-415) Mean Platelet Volume 11.3 fl (7.4-10.4) Immature Granulocytes % 0.000 % (0.001-0.429) Neutrophils % 39.3 % (39.0-77.0) Lymphocytes % 47.2 % (15.0-51.0) Monocytes % 10.4 % (0.0-11.0) Eosinophils % 2.5 % (0.0-7.0) Basophils % 0.6 % (0.0-2.0) Nucleated Red Blood Cells 0.0 /100WBC (0.0-0.0) % Immature Granulocytes # 0.000 10^3/ul (0.0-0.031) Neutrophils # 0.6 10^3/ul (1.6-7.5) Lymphocytes # 0.8 10^3/ul (0.8-2.9) Monocytes # 0.2 10^3/ul (0.3-0.9) Eosinophils # 0.0 10^3/ul (0.0-0.5) Basophils # 0.0 10^3/ul (0.0-0.1) Nucleated Red Blood Cells 0.0 10^3/ul (0.0-0.0) # Sodium Level 139 mmol/L (135-144) Potassium Level 4.4 mmol/L (3.5-5.1) Chloride Level 107 mmol/L (97-110) Carbon Dioxide Level 28 mmol/L (21-31) Anion Gap 4 (5-13) Blood Urea Nitrogen 9 mg/dl (7-20) Creatinine 0.65 mg/dl (0.61-1.24) Est Glomerular Filtrat > 60 mL/min (>60) Rate mL/min Glucose Level 85 mg/dl (70-220) Calcium Level 8.4 mg/dl (8.4-10.2) Total Bilirubin 1.6 mg/dl (0.2-1.3) Direct Bilirubin 0.00 mg/dl (0.00-0.20) Indirect Bilirubin 1.6 mg/dl (0-1.1) Aspartate Amino 54 IU/L (15-46) Transf (AST/SGOT) Alanine 32 IU/L (13-69) Aminotransferase (ALT/SGPT ) Alkaline Phosphatase 90 IU/L (42-121) Total Protein 6.3 g/dl (6.1-8.1) Albumin 2.7 g/dl (3.3-4.9) Globulin 3.60 g/dl (1.3-3.2) Albumin/Globulin Ratio 0.75 ANTONIA PATTON MD Sep 23, 2018 15:25
== END 2018-09-23 14:58 | disposition home or self-care (01) ==
LOC: E/R 20:52 → TEL 09-22 02:23
PROVIDERS: ADMIT Family Medicine; ATTEND Internal Medicine
DX: R55 Syncope and collapse (principal); K74.60 Unspecified cirrhosis of liver; D69.6 Thrombocytopenia, unspecified
CPT/HCPCS: 36600; 70450; 70486; 70553; 71045; 71275; 76705; 80053; 80307; 82550; 82553; 82803; 83036; 83690; 83735; 84443; 84484; 85025; 85378; 85610; 85730; 86592; 86706; 86803; 87340; 87536; 93880; 93970; 95819; G0378; J1885; J2270; J2405; J7030; Q9967; 93005